=== PATIENT | female | born 1975 | race African-American/Black ===

== ENCOUNTER 2017-05-10 08:03 | Emergency (ER) | payer OTHER ==
[2017-05-10] MEDS ORDERED: SUMAtriptan SUCCINATE 6 MG/0.5 ML VIAL SQ ONE (08:26)
[2017-05-10 09:10] VITALS: BP 125/68
--- NOTE | 2017-05-10 09:58 | ED Physician Documentation ---
Headache - HISTORIAN Historian: patient, spouse - HPI Stated Complaint: migraine Chief Complaint: Headache Onset: hours Timing: gradual Exposure To: none Severity: severe Quality: similar to previous, pain, pounding Associated Symptoms: sensitivity to light, nausea. denies: fever, chills, sweating, problems with vision, vomiting, neck pain, stiffness, speech problems , weakness, trouble walking, tingling, numbness, dizziness, light-headedness Preceding Symptoms: visual disturbance Exacerbated By: light, noise, movement, position Further Comments: yes (42 year old female patient presents with complaint of migraine headache. Patient is out of her imitrex and topamax. States migraine started this morning on her way to work, c/o blurry vision, photophobia and nausea. Returned home, unable to go to work today.) - ROS NEURO/PSYCH: denies: confusion, anxiety, depression, fainting, other EYES/ENT: denies: sore throat, difficulty swallowing, sinus pain, drainage, other CVS/RESP: none GI/: denies: abdominal pain, diarrhea, problems urinating, incontinence, other MS/SKIN/LYMPH: denies: muscle aches, back pain, rash, skin lesions, swollen glands, other all systems neg except as marked: Yes - PAST HX Medical History: migraines, other (depression) Allergies/Adverse Reactions: Allergies Allergy/AdvReac Type Severity Reaction Status Date / Time Sulfa (Sulfonamide Allergy Rash Verified 05/10/17 08:15 Antibiotics) Home Medications: Ambulatory Orders Medication Instructions Recorded Loratadine [Claritin] 10 mg PO DAILY 05/10/17 Mometasone Furoate [Nasonex] 17 gm NS DAILY 05/10/17 Montelukast Sodium [Singulair] 10 mg PO DAILY 05/10/17 Rizatriptan Benzoate [Rizatriptan] 10 mg PO PRN 05/10/17 Topiramate [Topamax] 200 mg PO BID 05/10/17 Venlafaxine HCl [Effexor Xr] 75 mg PO DAILY 05/10/17 - SOCIAL HX Smoking History: non-smoker - Family HX Family History: denies: none - VITAL SIGNS Vital Signs: Vital Signs Temp Pulse Resp BP Pulse Ox 98.2 F 66 18 125/68 99 05/10/17 09:08 05/10/17 09:08 05/10/17 09:08 05/10/17 09:08 05/10/17 09:08 - REVIEWED ASSESSMENTS Nursing Assessment Reviewed: Yes Vitals Reviewed: Yes Progress - Progress Progress: Patient medicated with imitrex in Er. At discharge, Patient reports migraine is much better. Nausea has resolved. Patient has refill of imitrex and topamax at the pharmacy. ED Results Lab/Radiology - Orders Orders: ED Orders Category Date Time Status SUMAtriptan SUCCINATE [Imitrex] Med 05/10/17 08:26 Discontinued 6 mg SQ NOW ONE Headache Physical Exam - EXAM General Appearance: moderate distress EENT: no facial swelling, eyes nml inspection, PERRL, photophobia, nml ENT, pharynx nml Respiratory: no resp distress, chest non-tender, breath sounds normal CVS: reg. rate & rhythm, heart sounds nml Abdomen: non-tender, no organomegaly, nml bowel sounds, no distention Skin: color nml, no rash, warm, nml palp., dry - NEURO/PSYCH Higher Functions: alert, oriented x3, nml speech, mood/affect nml Cranial: no evidence of acute CVA Sensorimotor: motor nml, sensation nml Discharge Clincal Impression: Migraine Qualifiers: Migraine type: with aura Status migrainosus presence: without status migrainosus Intractability: not intractable Qualified Code(s): G43.109 - Migraine with aura, not intractable, without status migrainosus Referrals: Primary Doctor,No [Primary Care Provider] - 2 Days Condition: Stable Disposition: 01 HOME, SELF-CARE Decision to Admit: NO Decision Time: 08:55
== END 2017-05-10 09:08 | disposition home or self-care (01) ==
LOC: ED 08:03
DX: G43.109 Migraine with aura, not intractable, without status migrainosus (principal)
CPT/HCPCS: 96372; 99283; J3030